=== PATIENT | female | born 1995 | race Two or more races ===

== ENCOUNTER 2018-04-21 07:47 | Emergency (ER) | payer BC, MEDICAID ==
[~2018-04-21] VITALS: Ht 160 cm; Wt 77.1 kg
[2018-04-21 08:22] LABS: Urine Bacteria FEW /hpf (None Seen); Urine Blood Negative /uL (Negative); Urine Mucus FEW (None Seen); Urine Specific Gravity 1.022 (1.001-1.035); Urine WBC 1 /hpf (0 - 5)
[2018-04-21 08:25] LABS: Basophils # (auto) 0.1 uL; Basophils % (auto) 0.9 % (0.0-2.0); Eosinophils # (auto) 0.1 uL; Eosinophils % (auto) 0.8 % (0.0-7.0); Hematocrit 41.9 % (36.0-46.0); Hemoglobin 14.2 g/dL (12.2-16.2); Lymphocytes # (auto) 1.8 uL; Lymphocytes % (auto) 23.3 % (10.0-50.0); Mean Corpuscular Hgb Conc. 33.9 g/dL (32.0-36.0); Mean Corpuscular Volume 79.6 fL (80.0-100.0); Monocytes # (auto) 0.5 uL; Neutrophils # (auto) 5.4 uL; Nucleated Red Blood Cells % 0.1 %; Platelet Count (auto) 313 10^3/uL (140-450); Red Blood Cells 5.26 10^6/uL (4.0-5.20); Red Cell Distribution Width 14.3 % (11.8-14.3); White Blood Cell 7.9 10^3/uL (4.4-10.8)
[2018-04-21 08:59] LABS: Albumin 3.8 g/dL (3.4-5.0); BUN/Creatinine Ratio 23.9; Calcium 8.5 mg/dL (8.5-10.1); Potassium 4.3 mmol/L (3.5-5.1)
[2018-04-21 09:02] LABS: Bilirubin, Total 0.6 mg/dL (0.2-1.0); Total Protein 7.5 g/dL (6.4-8.2)
[2018-04-21 12:59] VITALS: BP 120/70
== END 2018-04-21 13:15 | disposition home or self-care (01) ==
LOC: ER 07:47
DX: N83.9 Noninflammatory disorder of ovary, fallopian tube and broad ligament, unspecified (principal); K76.0 Fatty (change of) liver, not elsewhere classified; R74.8 Abnormal levels of other serum enzymes
CPT/HCPCS: 36415; 74176; 76856; 80053; 81001; 81025; 82150; 83690; 83735; 84702; 85025

== ENCOUNTER 2021-10-10 04:25 | Emergency (ER) | payer MEDICAID ==
[~2021-10-10] VITALS: Ht 162.6 cm; Wt 90.9 kg
[2021-10-10 04:35] VITALS: BP 143/71
[2021-10-10] MEDS ORDERED: diphenhdrAMINE HCL 25 MG CAP PO ONE (05:00)
== END 2021-10-10 06:36 | disposition left against medical advice (07) ==
LOC: ER 04:25
DX: R21 Rash and other nonspecific skin eruption (principal); R11.2 Nausea with vomiting, unspecified; Z53.21 Procedure and treatment not carried out due to patient leaving prior to being seen by health care provider